=== PATIENT | female | born 1995 | race Caucasian/White ===

== ENCOUNTER 2023-01-12 13:15 | Emergency (ER) | payer OTHER ==
[~2023-01-12] VITALS: Ht 180.3 cm; Wt 80.7 kg
[~2023-01-12 13:15] MED LIST: CYTOTEC200 MCG PO
--- OUTSIDE RECORDS SUMMARY | 2023-01-12 13:18 | XMS ---
PreManage Notification: JAYLIN SEGAL Security Sys Dir Events No recent Security Events currently on file CRITERIA MET - [facility] - 2 Visits in 30 Days CARE PROVIDERS -Odilia- Dentist: Beverage Host [facility] PHONE: [phone] Annalise Hayward Nurse Practitioner: Family Current PHONE: Unknown Alfreda has no Care Guidelines for this patient. E.Nikita VISIT COUNT (12 MO.) 2 [facility] [address] TOTAL 5 NOTE: Visits indicate total known visits. ED/UCC VISIT TRACKING (12 MO.) 01/12/2023 13:16 [facility] TYPE: Emergency COMPLAINT: - VAGINAL BLEEDING 01/11/2023 14:07 [facility] TYPE: Emergency COMPLAINT: - VAGINAL PROBLEM 12/28/2022 20:53 [facility] [place] TYPE: Emergency DIAGNOSES: - Encounter for supervision of normal , unspecified, first trimester - general 10/09/2022 21:04 [facility] TYPE: Emergency DIAGNOSES: 81948. ABD PAIN 00012. Right lower quadrant pain 04/07/2022 01:26 [facility] TYPE: Emergency DIAGNOSES: - Acute gastroenteropathy due to Pach[place] agent - VOMITING DIARRHEA INPATIENT VISIT TRACKING (12 MO.) No inpatient visits to display in this time frame [email or web address]
[2023-01-12 14:06] VITALS: BP 118/73
== END 2023-01-12 14:06 | disposition home or self-care (01) ==
LOC: ED 13:15
DX: O07.4 Failed attempted termination of pregnancy without complication (principal); Z79.899 Other long term (current) drug therapy
CPT/HCPCS: 99283